=== PATIENT | female | born 1990 | race African-American/Black ===

== ENCOUNTER 2017-11-13 08:56 | Emergency (ER) | payer OTHER ==
[2017-11-13 09:06] VITALS: BP 153/84; PULSE 95; TEMP 98.3; BMI 34.9
--- NOTE | 2017-11-13 09:18 | PDOC ---
Attending Attestation - Resident Resident Name: Carla Davidson - ED Attending Attestation I have performed the following: I have examined & evaluated the patient, The case was reviewed & discussed with the resident, I agree w/resident's findings & plan, Exceptions are as noted - HPI HPI: 11/13/17 09:17 27y F at 14 weeks gestation presents with complaint of vaginal bleeding, associated with lower abd cramping this morning upon awakening without asosciated n/v, fever/chills. Pt notes the pain and bleeding have largely stopped. No prior complications with this . last seen by Grease Renderer last week, last US 2 weeks ago on exam pt is well appearing, in no distress abd: soft nontender, no cva tenderness pelvic exam as documented ddx: threated ab will ck labs will ck pelvic US pt declines pain meds - Physicial Exam PE: 11/14/17 20:14 see above - Medical Decision Making US noted for IUP of 15 weeks FHR of 120 posterior placenta w/o previa will dc the pt to fu with reflector driller and deburrer return precautions were discussed dx threatened ab
--- NOTE | 2017-11-13 10:07 | PDOC ---
History of Present Illness - General Chief Complaint: Vaginal Bleeding Stated Complaint: VAGINAL BLEEDING (16 WKS ) Time Seen by Provider: 11/13/17 09:10 - History of Present Illness Initial Comments: 11/13/17 10:00 27 y.o. at a self reported 14 weeks gestation with no reported PMH presents to our ED today c/o hematuria. Patient states she noticed streaks of bright red blood when urinated this morning without any associated dysuria. Patient notes some B/L lower quadrant abdominal cramping without any fevers/ chills or constipation/diarrhea or nausea/vomiting. Patient notes she was evaluated by her certified marine mechanic earlier this week at which time she was told everything was normal. Patient had a normal transabdominal U/S 2 weeks previous. Patient denies any chest pain, shortness of breath, recent travel or sick contacts. NKDA Surgical: none Social: denies nicotine, denies alcohol, denies recreational drugs certified marine mechanic: Dr. Veronica Past History - Past Medical History Allergies/Adverse Reactions: Allergies Allergy/AdvReac Type Severity Reaction Status Date / Time No Known Allergies Allergy Verified 11/13/17 09:01 Home Medications: Ambulatory Orders Ferrous Sulfate [Feosol] 325 mg PO BID #1 ud 06/05/12 Vitamins (Sjr) - 1 tab PO DAILY #1 tablet 06/05/12 Acetaminophen [Tylenol .Regular Strength -] 650 mg PO Q3H PRN #0 tablet Ibuprofen [Motrin -] 600 mg PO Q4H PRN #0 tablet 06/23/12 Asthma: No Cancer: No Cardiac Disorders: No COPD: No Diabetes: No HTN: No Seizures: No Thyroid Disease: No - Suicide/Smoking/Psychosocial Hx Smoking History: Never smoked Have you smoked in the past 12 months: No Information on smoking cessation initiated: No Hx Alcohol Use: No Drug/Substance Use Hx: No Substance Use Type: None Hx Substance Use Treatment: No Review of Systems - Review of Systems Able to Perform ROS?: Yes Comments:: 11/13/17 10:13 Constitutional - no reported Fever, Chills,~ HEENT: no reported vision changes, sore throat Respiratory: no reported cough, sob, hemoptysis Cardiac: no reported chest pain, palpitations, light headedness, leg swelling Abd/GI: no reported abd pain, nausea, vomiting, blood per rectum, melena, diarrhea : no reported dysuria, frequency, discharge Musculskelatal - no reported back pain, joint swelling skin - no reported bruising, erythema, rash neurological: no reported headache, numbness, focal weakness, tingling, ataxia,~ hematologic: no reported anemia, easy bruising, easy bleeding *Physical Exam - Vital Signs Last Vital Signs Temp Pulse Resp BP Pulse Ox 98.3 F 95 H 18 153/84 100 11/13/17 09:01 11/13/17 09:01 11/13/17 09:01 11/13/17 09:01 11/13/17 09:01 - Physical Exam Comments: 11/13/17 11:56 GENERAL: The patient is awake, alert, and fully oriented, nontoxic - in no acute distress. : Pelvic exam: closed cervical os, no blood in vaginal vault, no CMT, non- palpable adenxa HEAD: Normocephalic, atraumatic. EYES: extraocular movements intact, sclera anicteric, conjunctiva clear. ENT: Normal voice, Moist mucous membranes. NECK: Normal range of motion, supple LUNGS: Breath sounds equal, clear to auscultation bilaterally. No wheezes, no rhonchi, no rales. HEART: Regular rate and rhythm, normal S1 and S2 without murmur, rub or gallop. ABDOMEN: Soft, nontender, normoactive bowel sounds. No guarding, no rebound. . No CVA tenderness, uterine fundus @ pubic symphsis NEUROLOGICAL: No facial assymetry, Normal speech, PSYCH: Normal mood, normal affect. SKIN: Warm, Dry, normal turgor 11/13/17 12:05 ED Treatment Course - LABORATORY CBC & Chemistry Diagram: 11/13/17 09:55 - RADIOLOGY Radiology Studies Ordered: Category Date Time Status LIMITED US [US] Stat Ultrasound 11/13/17 09:36 Ordered Medical Decision Making - Medical Decision Making 11/13/17 10:07 27 y.o. female @ self-reported 14 weeks gestation who presents with vaginal spotting. Will obtain CBC, Type and Screen and UA Transabdominal U/S to r/o placenta pathology including previa as well as spontaneous or threatened . 11/13/17 11:32 Pelvic exam shows closed cervical os w/no blood in vaginal vault. No CMT, normal (non-palpable) adenxa. UA negative for proteinuria. Blood type A positive - no indication for Rhogam. 11/13/17 11:50 Transabdominal U/S shows IUP with normal laying placenta, FHR 120's. Will discharge patient home with return precautions and instruction to follow up with certified marine mechanic in the next 24-48 hours. I discussed the physical exam findings, ancillary test results and final diagnoses with the patient. I answered all of the patient's questions. The patient was satisfied with the care received and felt comfortable with the discharge plan and treatment plan. The patient will return to the Emergency Department with any new, persistent or worsening symptoms. *DC/Admit/Observation/Transfer Diagnosis at time of Disposition: Hematuria - Discharge Dispostion Disposition: HOME Condition at time of disposition: Good Admit: No - Referrals Referrals: Debbie Haong MD [Primary Care Provider] - Jerome Martin MD [Staff Physician] - - Patient Instructions Printed Discharge Instructions: Common Discomforts and Bodily Changes During , Managing Symptoms of Additional Instructions: You were evaluated today for bleeding while urinating. An ultrasound of your abdomen showed no concerning findings. Please make a follow-up appointment with your certified marine mechanic for tomorrow. Return to the Emergency Department for any new/ worsening/concerning symptoms. - Post Discharge Activity
[2017-11-13 10:12] LABS: BASO % 0.2 % (0-2.0); EOS % 0.6 % (0-4.5); HEMATOCRIT 35.3 % (32.4-45.2); HEMOGLOBIN 12.1 GM/dL (10.7-15.3); LYMPH % 17.7 % (8-40); MCH 31.9 pg (25.7-33.7); MCHC 34.4 g/dl (32.0-36.0); MEAN CELL VOLUME 92.8 fl (80-96); MONO % 7.2 % (3.8-10.2); NEUT % 74.3 % (42.8-82.8); PLATELET COUNT 226 K/MM3 (134-434); RBC 3.81 M/mm3 (3.60-5.2); RDW 13.5 % (11.6-15.6); WHITE BLOOD COUNT 9.3 K/mm3 (4.0-10.0)
[2017-11-13 12:32] LABS: URINE APPEARANCE CLEAR; URINE BILIRUBIN NEGATIVE (NEGATIVE); URINE BLOOD NEGATIVE (NEGATIVE); URINE COLOR YELLOW; URINE GLUCOSE (UA) NEGATIVE (NEGATIVE); URINE KETONE NEGATIVE (NEGATIVE); URINE LEUK ESTERASE NEGATIVE (NEGATIVE); URINE NITRITE NEGATIVE (NEGATIVE); URINE PROTEIN NEGATIVE (NEGATIVE)
== END 2017-11-13 13:36 | disposition home or self-care (01) ==
LOC: JER 08:56
DX: O26.892 Other specified pregnancy related conditions, second trimester (principal); Z3A.16 16 weeks gestation of pregnancy
CPT/HCPCS: 36415; 76815-TC; 81003; 84702; 85025; 86850; 86900; 86901; 99283-25

== ENCOUNTER 2019-02-09 20:35 | Inpatient (IN) | payer OTHER ==
[2019-02-09 22:03] VITALS: BMI 34.5
[2019-02-09 22:06] LABS: BASO % 0.2 % (0-2.0); EOS % 0.6 % (0-4.5); HEMATOCRIT 27.8 % (32.4-45.2); HEMOGLOBIN 8.9 GM/dL (10.7-15.3); LYMPH % 21.3 % (8-40); MCH 26.9 pg (25.7-33.7); MCHC 32.2 g/dl (32.0-36.0); MEAN CELL VOLUME 83.6 fl (80-96); MEAN PLT VOLUME 9.6 fl (7.5-11.1); MONO % 9.8 % (3.8-10.2); NEUT % 68.1 % (42.8-82.8); PLATELET COUNT 209 K/MM3 (134-434); RBC 3.32 M/mm3 (3.60-5.2); RETICULOCYTES 1.83 % (0.5-1.5); WHITE BLOOD COUNT 7.2 K/mm3 (4.0-10.0)
[2019-02-09 22:19] LABS: INR 1.05 (0.83-1.09); PROTHROMBIN TIME (PATIENT) 12.4 SEC (9.7-13.0)
[2019-02-09 22:22] LABS: CALCIUM 8.7 mg/dL (8.5-10.1); CREATININE 0.7 mg/dL (0.55-1.3); POTASSIUM 3.5 mmol/L (3.5-5.1)
[2019-02-09 22:57] LABS: EPI CELLS 5.6 /HPF (0-5/HPF); HYALINE CASTS 17 /lpf (0-8); URINE APPEARANCE CLEAR; URINE BACTERIA 357.5 /hpf (NEGATIVE); URINE BILIRUBIN NEGATIVE (NEGATIVE); URINE COLOR YELLOW; URINE GLUCOSE (UA) NEGATIVE (NEGATIVE); URINE KETONE TRACE (NEGATIVE); URINE LEUK ESTERASE 1+ (NEGATIVE); URINE NITRITE NEGATIVE (NEGATIVE); URINE PROTEIN 2+ (NEGATIVE); URINE RBC 3 /hpf (0-4); URINE WBC 7 /hpf (0-5)
--- NOTE | 2019-02-10 07:28 | HP ---
Past Medical History - Primary Care Physician PCP:: Rodrigo Mars - Admission Chief Complaint: 37 weeks, CHTN, GDM uncontrolled History of Present Illness: 28 yo f , edc by sono 03/02/19,37 weeks with hx of CHTN, GDM, uncontrolled admitted for BP monitoring, r/o PIH and BGM prior to delivery, no headache or blurred vision, no RUQ pain, has 2+ protein in urine, no contraction , good fm, nst reactive cat 1, cx 3 cm 50 vx -3 mi, History Source: Patient Limitations to Obtaining History: No Limitations - Past Medical History ...: 4 ...Para: 3 ...Term: 0 ...: 3 ...Spon : 0 ...Induced : 0 ...Multiple Gestation: 0 ...EDC by Sono: 03/01/19 Heme/Onc: Yes: Anemia Endocrine: Yes: Diabetes Mellitus - Past Surgical History Hx Myomectomy: No Hx Transabdominal Cerclage: No - Smoking History Smoking history: Never smoked Have you smoked in the past 12 months: No - Alcohol/Substance Use Hx Alcohol Use: No History of Substance Use: reports: None - Social History History of Recent Travel: No Home Medications - Allergies Allergies/Adverse Reactions: Allergies Allergy/AdvReac Type Severity Reaction Status Date / Time No Known Allergies Allergy Verified 02/10/19 03:52 - Home Medications Home Medications: Ambulatory Orders NK [No Known Home Medication] 01/22/19 Review of Systems - Review of Systems Constitutional: reports: No Symptoms Eyes: reports: No Symptoms HENT: reports: No Symptoms Neck: reports: No Symptoms Cardiovascular: reports: No Symptoms Respiratory: reports: No Symptoms Gastrointestinal: reports: No Symptoms Genitourinary: reports: No Symptoms Breasts: reports: No Symptoms Reported Musculoskeletal: reports: No Symptoms Integumentary: reports: No Symptoms Neurological: reports: No Symptoms Endocrine: reports: No Symptoms Hematology/Lymphatic: reports: No Symptoms Psychiatric: reports: No Symptoms Physical Exam - Maternity Vital Signs: Vital Signs Temperature 98.6 F 02/10/19 06:00 Pulse Rate 70 02/10/19 06:00 Respiratory Rate 20 02/10/19 06:00 Blood Pressure 138/67 02/10/19 06:00 O2 Sat by Pulse Oximetry (%) Constitutional: Yes: Well Nourished, No Distress, Calm Eyes: Yes: WNL, Conjunctiva Clear, EOM Intact HENT: Yes: WNL, Atraumatic, Normocephalic Neck: Yes: WNL, Supple, Trachea Midline Cardiovascular: Yes: WNL, Regular Rate and Rhythm Breast(s): Yes: WNL - Abdominal Exam/OB Fundal Height: 38 Number of Fetuses: Single Presentation: Vertex Contractions: No Regularity: Irritability Intensity: Unaware Monitor Mode: External Heart Rate Location: [facility] Category: I Accelerations: Uniform Decelerations: None - Vaginal Exam/OB Vaginal Bleediing: No Speculum Exam: No Dilatation (cm): 3 cm Effacement (%): 50 Amniotic Membrane Status: Intact Station: -3 - Physical Exam Musculoskeletal: Yes: WNL Extremities: Yes: WNL Edema: LLE: 1+, RLE: 1+ Deep Tendon Reflex Grade: Normal +2 Psychiatric: Yes: WNL - Labs Lab Results: CBC, BMP 02/09/19 21:30 02/09/19 21:30 Hemorrhage Risk Assessment - Risk Factors Medium Risk Factors: Yes: Multiple gestation Risk Score: 1 Risk Level: Medium Risk Problem List - Problems (1) with 37 weeks completed gestation Code(s): Z3A.37 - 37 WEEKS GESTATION OF (2) Gestational diabetes Code(s): O24.419 - GESTATIONAL DIABETES MELLITUS IN , UNSP CONTROL Qualifiers: Gestational diabetes mellitus control: diet-controlled Trimester: third trimester Qualified Code(s): O24.410 - Gestational diabetes mellitus in , diet controlled (3) Hypertension affecting Code(s): O16.9 - UNSPECIFIED MATERNAL HYPERTENSION, UNSPECIFIED TRIMESTER Qualifiers: Trimester: third trimester Qualified Code(s): O16.3 - Unspecified maternal hypertension, third trimester (4) Obesity Code(s): E66.9 - OBESITY, UNSPECIFIED Qualifiers: Obesity type: due to excess calories Assessment/Plan admit, monitor BP, r/o superimposed PIH GDM, diet controlled , non compliant plan monitor BGM 24 hr urine collection [facility] lab
[2019-02-10] MEDS ORDERED: ELECTROLYTE-148 SOLN 1,000 ML IV SCH (11:00)
[2019-02-10] MEDS ORDERED: OXYTOCIN 30 UNITS in 0.9% NS 30 UNIT/500 ML INFUS.BAG IVPB SCH (12:00)
[2019-02-10] MEDS ORDERED: OXYTOCIN 20 UNITS in 0.9% NS 20 UNIT/1,000 ML INFUS.BAG IV ONE ×3 (12:05→19:57)
[2019-02-10] MEDS ORDERED: AMPICILLIN - 2 GM in SODIUM CHLORIDE 100 ML IVPB ONE (13:00)
--- NOTE | 2019-02-10 13:24 | HP ---
Past Medical History - Primary Care Physician PCP:: Moo Soto - Admission Chief Complaint: 28yo P0303 with at EGA 37w2d referred for labor induction due to poor compliance with GDM and HTN with suspected superimposed preeclampsia. History of Present Illness: Poorly compliant with GDM care and management. Not measuring FSG or maintaining diet, not keeping MFM appointments. chronic HTN with increasing BP trend in-office. Normal FSG on admission BP in 140's/80-92 range Anemia Obesity Positive GBS vaginal cx on 01/27/2019 History Source: Patient, Medical Record Limitations to Obtaining History: No Limitations - Past Medical History MOTOR BOSS: No: Alzheimer's, CVA, Dementia, Migraine, Multiple Sclerosis, Peripheral Neuropathy, Parkinson's, Seizure, Syncope, TIA, Vertigo, Other Cardiovascular: No: AFIB, Aneurysm, Aortic Insufficiency, Aortic Stenosis, CAD, CHF, Deep Vein Thrombosis, HTN, Hyperlipdemia, IL, Mitral Insufficiency, Mitral Stenosis, Murmur, Pulmonary Hypertension, Other Pulmonary: No: Asthma, Bronchitis, Cancer, COPD, O2 Dependent, Pneumonia, Previously Intubated, Pulmonary Embolus, Pulmonary Fibrosis, Sleep Apnea, Other Gastrointestinal: No: Ascites, Cancer, Constipation, Crohn's Disease, Diverticulitis, Diverticulosis, Esophageal Varices, Gastritis, GERD, GI Bleed, Hemorrhoids, Hiatal Hernia, Inflamatory Bowel Disease, Irritable Bowel Disease, Pancreatitis, Peptic Ulcer Disease, Ulcerative Colitis, Other Hepatobiliary: No: Cirrhosis, Cholelithiasis, Cholecystitis, Choledocholithiasis , Hepatitis A, Hepatitis B, Hepatitis C, Other Renal/: No: Renal Failure, Renal Inusuff, BPH, Cancer, Hematuria, Hemodialysis , Neurogenic Bladder, Renal Calculi, UTI, Other ...: 4 ...Para: 3 ...Term: 0 ...: 3 ...Spon : 0 ...Induced : 0 ...Multiple Gestation: 0 ... Weeks Gestation by Dates: 37.2 ...EDC by Sono: 03/01/19 Heme/Onc: Yes: Anemia Infectious Disease: No: AIDS, C-Diff, Herpes Zoster, HIV, MRSA, STD's, Tuberculosis, VREF, Other Psych: No: Addictions, Anxiety, Bipolar, Depression, Panic, Psychosis, Schizophrenia, Other Musculoskeletal: No: Bursitis, Chronic low back pain, Hemiparesis, Hemiplegia, Osteoarthritis, Paraplegia, Other Rheumatology: No: Fibromyalgia, Gout, Lupus, Rheumatoid Arthritis, Sarcoidosis, Vasculitis, Other ENT: No: Allergic Rhinitis, Sinusitis, Other Endocrine: Yes: Diabetes Mellitus (GDM) Dermatology: No: Basal Cell, Cellulitis, Eczema, Melanoma, Psoriasis, Squamous Cell, Other - Past Surgical History Past Surgical History: Yes: None Hx Myomectomy: No Hx Transabdominal Cerclage: No - Smoking History Smoking history: Never smoked Have you smoked in the past 12 months: No - Alcohol/Substance Use Hx Alcohol Use: No History of Substance Use: reports: None - Social History Usual Living Arrangement: Yes: With Child ADL: Independent History of Recent Travel: No Home Medications - Allergies Allergies/Adverse Reactions: Allergies Allergy/AdvReac Type Severity Reaction Status Date / Time No Known Allergies Allergy Verified 02/10/19 03:52 - Home Medications Home Medications: Ambulatory Orders NK [No Known Home Medication] 01/22/19 Family Disease History - Family Disease History Family History: Unremarkable Review of Systems - Review of Systems Constitutional: reports: No Symptoms Eyes: reports: No Symptoms HENT: reports: No Symptoms Neck: reports: No Symptoms Cardiovascular: reports: No Symptoms Respiratory: reports: No Symptoms Gastrointestinal: reports: No Symptoms Genitourinary: reports: No Symptoms Breasts: reports: No Symptoms Reported Musculoskeletal: reports: No Symptoms Integumentary: reports: No Symptoms Neurological: reports: No Symptoms Endocrine: reports: No Symptoms Hematology/Lymphatic: reports: No Symptoms Psychiatric: reports: No Symptoms Pain Intensity: 0 Physical Exam - Maternity Vital Signs: Vital Signs Temperature 98.3 F 02/10/19 12:00 Pulse Rate 84 02/10/19 12:00 Respiratory Rate 18 02/10/19 12:00 Blood Pressure 152/89 02/10/19 12:00 O2 Sat by Pulse Oximetry (%) Constitutional: Yes: Well Nourished, No Distress, Calm Eyes: Yes: WNL, Conjunctiva Clear HENT: Yes: WNL, Atraumatic, Normocephalic Neck: Yes: WNL, Supple, Trachea Midline Cardiovascular: Yes: WNL, Regular Rate and Rhythm Lungs: Clear to auscultation, Normal air movement - Abdominal Exam/OB Fundal Height: 38 Number of Fetuses: Single Presentation: Vertex Contractions: No Intensity: Unaware Heart Rate (range): 115 Heart Rate Location: Midline Category: I Accelerations: Uniform Decelerations: None - Vaginal Exam/OB Vaginal Bleediing: No Speculum Exam: No Dilatation (cm): 4 Effacement (%): 50 Amniotic Membrane Status: Intact Presentation: Vertex/Position Station: -3 (Adequate gynecoid pelvis) - Physical Exam Musculoskeletal: Yes: WNL Extremities: Yes: WNL Edema: No Deep Tendon Reflex Grade: Normal +2 ...Motor Strength: WNL Psychiatric: Yes: WNL, Alert, Oriented - Labs Lab Results: CBC, BMP 02/09/19 21:30 02/09/19 21:30 Hemorrhage Risk Assessment - Risk Factors Medium Risk Factors: Yes: None High Risk Factors: Yes: None Risk Score: 1 Risk Level: Medium Risk Imaging - Results Ultrasound: Image Reviewed Assessment/Plan 28yo P0303 with at EGA 37w2d referred for labor induction due to poor compliance with GDM and HTN with suspected superimposed preeclampsia. Pt's FSG are within normal range. The BP is elevated but in mild HTN range. The labs show anemia and 2+ proteinuria but o/w normal. Fetus with category I tracing. I discussed the case with Dr. De Guzman, primary TOOTH POLISHER for this patient, and the plan was previously established in consultation with Dr. Sanz ([facility]) for labor induction at this time. Fetus with Category I tracing. Adequate gynecoid pelvimetry on exam. We had long discussion re: risks, benefits, and alternatives of labor induction. I explained the options of expectant management awaiting spontaneous labor, induction of labor, and elective section. The risks of uterine tachysystole, distress, uterine rupture, need for emergency C/S, hemorrhage, infection, scarring, etc. were discussed. We also discussed the risks of meconium aspiration, shoulder dystocia , and anesthesia options. The pt requested to proceed with induction.
[2019-02-10] MEDS ORDERED: AMPICILLIN SODIUM 2 GM VIAL ONE (13:25)
[2019-02-10] MEDS ORDERED: PROMETHAZINE HCL 25 MG/1 ML VIAL ONE (15:26)
[2019-02-10] MEDS ORDERED: BUTORPHANOL TARTRATE 2 MG/ML VIAL ONE (15:26)
[2019-02-10] MEDS ORDERED: PROMETHAZINE HCL 25 MG/1 ML VIAL IVPB ONE (15:30)
[2019-02-10] MEDS ORDERED: BUTORPHANOL TARTRATE 1 MG/ML VIAL IVPB ONE (15:30)
--- NOTE | 2019-02-10 15:30 | PN ---
Ante-Partal Exam - Subjective Subjective: Pt is c/o contractions Vital Signs: Vital Signs Temperature 98.3 F 02/10/19 14:00 Pulse Rate 72 02/10/19 14:00 Respiratory Rate 18 02/10/19 14:00 Blood Pressure 136/89 02/10/19 14:00 O2 Sat by Pulse Oximetry (%) Bleeding: No Headache: No Visual changes: No Pain (scale 1-10): 7 - Contractions Contractions: Yes Regularity: Irregular Intensity: Moderate Monitor Mode: External - Exam during Labor Heart Rate: 120 Variability: Moderate Heart Rate Location: Midline Category: I Monitor Accelerations: Present Monitor Decelerations: None Exam: Vaginal Dilatation (cm): 5 Effacement (%): 70 Amniotic Membrane Status: Ruptured (AROM) Nitrazine Test: Positive Amniotic Fluid: Clear Presentation: Vertex Station: -3 - Intrapartum Hemorrhage Risk Medium Risk Factors: None High Risk Factors: None Risk Score: 0 Risk Level: Low Risk - Assessment/Plan Assessment/Plan: Progressing in labor. Anticipate
[2019-02-10] MEDS ORDERED: CARBOPROST TROMETHAMINE 250 MCG/ML AMPUL IM ONE (16:45)
[2019-02-10] MEDS ORDERED: BENZOCAINE 20% 57 GM BOTTLE TP PRN (16:57)
[2019-02-10] MEDS ORDERED: METHYLERGONOVINE MALEATE 0.2 MG/1 ML AMP IM PRN (16:57)
[2019-02-10] MEDS ORDERED: BISACODYL 10 MG SUPP.RECT RC PRN (16:57)
[2019-02-10] MEDS ORDERED: BENZOCAINE 28 GM HEMORRHOIDAL OINTMENT TP PRN (16:57)
[2019-02-10] MEDS ORDERED: WITCH HAZEL 50% (TUCKS) 40 PAD/JAR PAD TP PRN (16:57)
[2019-02-10] MEDS ORDERED: OXYTOCIN 20 UNITS in 0.9% NS 20 UNIT/1,000 ML INFUS.BAG IV SCH (17:00)
--- NOTE | 2019-02-10 17:29 | PN ---
Delivery - Delivery Vaginal Delivery: No Problems, Spontaneous Type of Anesthesia: None Episiotomy/Laceration: None EBL (cc): 700 Delivery, Single - Stages of Labor Date 1st Stage Initiatied: 02/10/19 Time 1st Stage Initiated: 12:00 Date 2nd Stage Initiated: 02/10/19 Time 2nd Stage Initiated: 16:15 Date of Delivery: 02/10/19 Time of Delivery: 16:37 Date Placenta Delivered: 02/10/19 Time Placenta Delivered: 16:45 Placenta: Yes: Spontaneous, Normal Configuration - Condition of Electronic Equipment Installer/Hide Grader Present: No Gender: Male Weight: 3.572 kg Position: OA Total Hours ROM (Hrs/Mins): 4H25M - 1 Minute Total Score: 9 5 Minutes Total Score: 9 - Feeding Plan Initial Plan: Elected not to breastfeed exclusively throughout hospitalization Benefits of Exclusively reinforced: Yes Remarks - Remarks Remarks: hemorrhage- responded to uterine massage and Hemabate
[2019-02-10 17:32] LABS: VENOUS PC02 40.5 mmHg (41-51); VENOUS PH 7.37 (7.31-7.41); VENOUS PO2 35.6 mmHg (30-40)
[2019-02-10 17:35] LABS: ARTERIAL BLD GAS O2 SATURATION 46.8 % (95-98); ARTERIAL BLOOD GAS BASE EXCESS -1.8 meq/l (-2-2); ARTERIAL BLOOD GAS PCO2 50.4 mmHg (35-45); ARTERIAL BLOOD GAS pH 7.31 (7.35-7.45)
[2019-02-10 17:39] LABS: ARTERIAL BLOOD GAS PO2 24.6 mmHg (80-105)
[2019-02-10] MEDS ORDERED: IBUPROFEN 600 MG TABLET (FP) PO ONE (18:11)
[2019-02-10] MEDS: IBUPROFEN 600 MG TABLET (FP) PO PRN ×2 (18:15→23:53)
[2019-02-10] MEDS: ACETAMINOPHEN 325 MG TABLET (FP) PO PRN (23:54)
[2019-02-11 06:59] LABS: BASO % 0.2 % (0-2.0); EOS % 0.2 % (0-4.5); HEMATOCRIT 23.9 % (32.4-45.2); HEMOGLOBIN 7.5 GM/dL (10.7-15.3); LYMPH % 14.3 % (8-40); MCH 26.4 pg (25.7-33.7); MCHC 31.3 g/dl (32.0-36.0); MEAN CELL VOLUME 84.4 fl (80-96); MEAN PLT VOLUME 9.9 fl (7.5-11.1); MONO % 8.5 % (3.8-10.2); NEUT % 76.8 % (42.8-82.8); PLATELET COUNT 190 K/MM3 (134-434); RBC 2.83 M/mm3 (3.60-5.2); RDW 14.6 % (11.6-15.6); WHITE BLOOD COUNT 13.1 K/mm3 (4.0-10.0)
[2019-02-11] MEDS: FERROUS SO4 325 MG TABLET (FP) PO SCH ×4 (07:27→17:39)
[2019-02-11] MEDS: PRENATAL VITAMINS W/ FOLIC ACID TABLET (FP) PO SCH (09:06)
[2019-02-11] MEDS: LABETALOL HCL 200 MG TABLET (FP) PO PRN ×2 (10:40→17:39)
--- NOTE | 2019-02-11 21:36 | PN ---
Post Progress Note - Subjective Subjective: Patient without acute complaints. Reports tolerating oral intake without nausea or vomiting. Ambulating without dizziness. Denies fevers or chills. Pain well controlled with oral pain medication. Pumping/breast feeding without issue. Passing flatus. Post Day: 1 Type of Delivery: Vital Signs: Vital Signs Temperature 98.3 F 02/11/19 17:48 Pulse Rate 109 H 02/11/19 17:48 Respiratory Rate 20 02/11/19 17:48 Blood Pressure 142/109 H 02/11/19 17:48 O2 Sat by Pulse Oximetry (%) Breast Exam: Yes: Soft Uterus: Yes: Fundus Firm Abdomen/GI: Yes: Abdomen soft, Passing flatus, Tolerating PO Lochia: Yes: Rubra Lochia, amount: Small Extremities: Yes: Calves non-tender Perineum: Yes: Intact Activity: Ambulating - Labs Labs: CBC WBC 13.1 K/mm3 (4.0-10.0) H 02/11/19 05:30 RBC 2.83 M/mm3 (3.60-5.2) L 02/11/19 05:30 Hgb 7.5 GM/dL (10.7-15.3) L 02/11/19 05:30 Hct 23.9 % (32.4-45.2) L 02/11/19 05:30 MCV 84.4 fl (80-96) 02/11/19 05:30 MCH 26.4 pg (25.7-33.7) 02/11/19 05:30 MCHC 31.3 g/dl (32.0-36.0) L 02/11/19 05:30 RDW 14.6 % (11.6-15.6) 02/11/19 05:30 Plt Count 190 K/MM3 (134-434) 02/11/19 05:30 MPV 9.9 fl (7.5-11.1) 02/11/19 05:30 Absolute Neuts (auto) 10.1 K/mm3 (1.5-8.0) H 02/11/19 05:30 Neutrophils % 76.8 % (42.8-82.8) 02/11/19 05:30 Lymphocytes % 14.3 % (8-40) D 02/11/19 05:30 Monocytes % 8.5 % (3.8-10.2) 02/11/19 05:30 Eosinophils % 0.2 % (0-4.5) 02/11/19 05:30 Basophils % 0.2 % (0-2.0) 02/11/19 05:30 Nucleated RBC % 0 % (0-0) 02/11/19 05:30 Retic Count 1.83 % (0.5-1.5) H D 02/09/19 21:30 Haptoglobin 102 mg/dL (34-200) 02/09/19 21:30 Other Findings, Remarks: 28yo P4 s/p , doing well stable, afebrile. Asymptomatic for anemia. Plan to repeat CBC in AM. BP labile and mostly in normal or mildly elevated range. A few sporadically high BP's noted. Continue labetalol PRN. No s/sx of severe preeclampsia at this time. care instructions reviewed. Continue routine care. Ambulation encouraged Discharge instruction reviewed. Pt was advised that she will need to primary OB doctor same week of discharge. She was also advised that she will need a 2hr Glucose challenge in 5-6 weeks to check for diabetes.
[2019-02-11] MEDS: ACETAMINOPHEN 325 MG TABLET (FP) PO PRN (21:49)
[2019-02-11] MEDS ORDERED: SENNOSIDES/DOCUSATE COMBO (SENNA PLUS) TABLET (UD) PO PRN (22:00)
[2019-02-12 07:39] LABS: BASO % 0.4 % (0-2.0); EOS % 1.6 % (0-4.5); HEMATOCRIT 19.6 % (32.4-45.2); LYMPH % 31.8 % (8-40); MCH 27.2 pg (25.7-33.7); MCHC 32.6 g/dl (32.0-36.0); MEAN CELL VOLUME 83.4 fl (80-96); MEAN PLT VOLUME 9.6 fl (7.5-11.1); MONO % 8.2 % (3.8-10.2); PLATELET COUNT 176 K/MM3 (134-434); RBC 2.35 M/mm3 (3.60-5.2); RDW 14.7 % (11.6-15.6); WHITE BLOOD COUNT 8.7 K/mm3 (4.0-10.0)
[2019-02-12] MEDS: FERROUS SO4 325 MG TABLET (FP) PO SCH ×3 (07:43→17:21)
[2019-02-12 08:06] LABS: ALBUMIN 2.2 g/dl (3.4-5.0); BILIRUBIN,TOTAL 0.2 mg/dL (0.2-1); CALCIUM 8.4 mg/dL (8.5-10.1); CREATININE 0.5 mg/dL (0.55-1.3); POTASSIUM 3.9 mmol/L (3.5-5.1); TOT PROT 5.5 g/dl (6.4-8.2)
[2019-02-12] MEDS: LABETALOL HCL 200 MG TABLET (FP) PO PRN (08:55)
[2019-02-12 09:21] LABS: HEMOGLOBIN 6.4 GM/dL (10.7-15.3)
[2019-02-12] MEDS: PRENATAL VITAMINS W/ FOLIC ACID TABLET (FP) PO SCH (09:35)
--- NOTE | 2019-02-12 10:55 | PN ---
Post Progress Note - Subjective Subjective: Patient without acute complaints. Asymptomatic for anemia. Reports tolerating oral intake without nausea or vomiting. Ambulating without dizziness. Denies fevers or chills. Pain well controlled with oral pain medication. Post Day: 2 Type of Delivery: Vital Signs: Vital Signs Temperature 98.2 F 02/12/19 08:52 Pulse Rate 92 H 02/12/19 08:53 Respiratory Rate 18 02/12/19 08:52 Blood Pressure 156/102 H 02/12/19 08:53 O2 Sat by Pulse Oximetry (%) Breast Exam: Yes: Soft Uterus: Yes: Fundus Firm, Fundus below umbilicus Abdomen/GI: Yes: Abdomen soft, Passing flatus, Tolerating PO Lochia: Yes: Rubra Lochia, amount: Small Extremities: Yes: Calves non-tender Perineum: Yes: Intact Activity: Ambulating - Labs Labs: CBC WBC 8.7 K/mm3 (4.0-10.0) 02/12/19 06:55 RBC 2.35 M/mm3 (3.60-5.2) L 02/12/19 06:55 Hgb 6.4 GM/dL (10.7-15.3) L* 02/12/19 06:55 Hct 19.6 % (32.4-45.2) L D 02/12/19 06:55 MCV 83.4 fl (80-96) 02/12/19 06:55 MCH 27.2 pg (25.7-33.7) 02/12/19 06:55 MCHC 32.6 g/dl (32.0-36.0) 02/12/19 06:55 RDW 14.7 % (11.6-15.6) 02/12/19 06:55 Plt Count 176 K/MM3 (134-434) 02/12/19 06:55 MPV 9.6 fl (7.5-11.1) 02/12/19 06:55 Absolute Neuts (auto) 5.1 K/mm3 (1.5-8.0) 02/12/19 06:55 Neutrophils % 58.0 % (42.8-82.8) D 02/12/19 06:55 Lymphocytes % 31.8 % (8-40) D 02/12/19 06:55 Monocytes % 8.2 % (3.8-10.2) 02/12/19 06:55 Eosinophils % 1.6 % (0-4.5) D 02/12/19 06:55 Basophils % 0.4 % (0-2.0) 02/12/19 06:55 Nucleated RBC % 0 % (0-0) 02/12/19 06:55 Retic Count 1.83 % (0.5-1.5) H D 02/09/19 21:30 Haptoglobin 102 mg/dL (34-200) 02/09/19 21:30 Assessment/Plan 28yo s/p , doing well, afebrile. The pt is asymptomatic for s/sx of anemia. Her Hct is 19.6%. Plan to transfuse 2u PRBC. BP has increased and pt was tx with Labetalol. Plan to request Consult from Renal re: BP control. care instructions reviewed. Continue routine care. Ambulation encouraged Discharge instruction reviewed.
--- NOTE | 2019-02-12 11:49 | CONSULT ---
Consult - text type - Consultation Consultation Note: Renal Consult for hypertension This is a 28 year woman who presented at 37 weeks gestation for indication and noted to have hypertension. Pt reports that he BP was high after the detention point of this . BP was night with her last as well but resolved after delivery. Pt denies any CP, ROJO, CP, Abd pain, N/V/D. Hgb also noted to be low, to get blood today. Denies any Abd pain. S/p Vaginal delivery. PMhx: as above Allergies: NKDA Family Hx: NC Social Hx: No T/A/D ROS: as per HPI Home Medications Medication Instructions Recorded NK [No Known Home Medication] 01/22/19 Vital Signs Temperature 98.2 F 02/12/19 08:52 Pulse Rate 92 H 02/12/19 08:53 Respiratory Rate 18 02/12/19 08:52 Blood Pressure 156/102 H 02/12/19 08:53 O2 Sat by Pulse Oximetry (%) Intake & Output 02/09/19 02/10/19 02/11/19 02/12/19 23:59 23:59 23:59 23:59 Intake Total 125 1050 Balance 125 1050 Weight 106.141 kg NAD awake and alert neck supple, no JVD RRR CTA soft NT/ND no LE edema no focal neurologic deficits CBC, BMP 02/12/19 06:55 02/12/19 06:55 Laboratory Tests 02/09/19 22:00 Urine Protein 2+ H Ur Leukocyte Esterase 1+ H Current Medications Acetaminophen (Tylenol -) 650 mg PO Q3H PRN PRN Reason: PAIN Last Admin: 02/11/19 21:49 Dose: 650 mg Benzocaine (Americaine 20% [place] -) 1 spray TP PRN PRN PRN Reason: PAIN Last Admin: 02/11/19 21:48 Dose: 1 spray Benzocaine (Americaine Ointment -) 1 applic TP PRN PRN PRN Reason: PAIN Bisacodyl (Dulcolax Suppository -) 10 mg RC PRN PRN PRN Reason: CONSTIPATION Ferrous Sulfate (Feosol -) 325 mg PO TIDCM [facility] Last Admin: 02/12/19 11:34 Dose: 325 mg Parenteral Electrolytes (Plasma-Lyte 148 -) 1,000 mls @ 125 mls/hr IV ASDIR [facility] Last Admin: 02/10/19 11:00 Dose: 125 mls/hr Oxytocin/Sodium Chloride (Normal Saline+20 Units Oxytocin -) 20 unit in 1,000 mls @ 125 mls/hr IV ASDIR ROSITA Last Admin: 02/10/19 16:45 Dose: 125 mls/hr Ibuprofen (Motrin -) 600 mg PO Q4H PRN PRN Reason: PAIN Last Admin: 02/10/19 23:53 Dose: 600 mg Labetalol HCl (Normodyne -) 200 mg PO TID PRN PRN Reason: FOR SYSTOLIC>140;DYASTOLIC >90 Last Admin: 02/12/19 08:55 Dose: 200 mg Multivit/Folic Acid/Iron ( Vitamins (Sjr) -) 1 tab PO DAILY ROSITA Last Admin: 02/12/19 09:35 Dose: 1 tab Senna/Docusate Sodium (Pericolace -) 2 tablet PO HS PRN PRN Reason: CONSTIPATION Witch Sary/Glycerin (Tucks Pads -) 1 pad TP PRN PRN PRN Reason: PAIN Last Admin: 02/11/19 17:39 Dose: 1 can 28 year woman who presented at 37 weeks gestation for indication and noted to have hypertension. Pt reports that he BP was high after the detention point of this # hypertension r/o preeclampsia #Acute Anemia #Proteinuria #Single gestation s/p vaginal delivery. No evidence of HELLP (normal plt counts, normal liver function) Will check LDH and haptolgobin BP improved with labetalol Change labetalol order to 200mg Q6h PRN for SBP > 140 or DBP > 90 check urine protein to creatinine ratio Low salt diet pain control w/o NSAIDs for prbc transfusion as per OB Thank you Laith Toledo DO
[2019-02-12] MEDS ORDERED: LABETALOL HCL 200 MG TABLET (FP) PO PRN (11:51)
[2019-02-13 06:15] VITALS: TEMP 98.3
[2019-02-13] MEDS: FERROUS SO4 325 MG TABLET (FP) PO SCH ×2 (07:57→11:51)
[2019-02-13] MEDS: PRENATAL VITAMINS W/ FOLIC ACID TABLET (FP) PO SCH (10:00)
--- NOTE | 2019-02-13 11:35 | PN ---
Post Progress Note - Subjective Subjective: Patient without acute complaints. Reports tolerating oral intake without nausea or vomiting. Ambulating without dizziness or palpitations Denies fevers or chills. Pain well controlled with oral pain medication. Not Passing flatus. Post Day: 2 Type of Delivery: Vital Signs: Vital Signs Temperature 98.3 F 02/13/19 10:00 Pulse Rate 82 02/13/19 10:00 Respiratory Rate 18 02/13/19 10:00 Blood Pressure 125/79 02/13/19 10:00 O2 Sat by Pulse Oximetry (%) Breast Exam: Yes: Soft Uterus: Yes: Fundus Firm Abdomen/GI: Yes: Abdomen soft, Passing flatus, Tolerating PO Lochia: Yes: Rubra Lochia, amount: Small Perineum: Yes: Intact Activity: Ambulating - Labs Labs: CBC WBC 8.7 K/mm3 (4.0-10.0) 02/12/19 06:55 RBC 2.35 M/mm3 (3.60-5.2) L 02/12/19 06:55 Hgb 6.4 GM/dL (10.7-15.3) L* 02/12/19 06:55 Hct 19.6 % (32.4-45.2) L D 02/12/19 06:55 MCV 83.4 fl (80-96) 02/12/19 06:55 MCH 27.2 pg (25.7-33.7) 02/12/19 06:55 MCHC 32.6 g/dl (32.0-36.0) 02/12/19 06:55 RDW 14.7 % (11.6-15.6) 02/12/19 06:55 Plt Count 176 K/MM3 (134-434) 02/12/19 06:55 MPV 9.6 fl (7.5-11.1) 02/12/19 06:55 Absolute Neuts (auto) 5.1 K/mm3 (1.5-8.0) 02/12/19 06:55 Neutrophils % 58.0 % (42.8-82.8) D 02/12/19 06:55 Lymphocytes % 31.8 % (8-40) D 02/12/19 06:55 Monocytes % 8.2 % (3.8-10.2) 02/12/19 06:55 Eosinophils % 1.6 % (0-4.5) D 02/12/19 06:55 Basophils % 0.4 % (0-2.0) 02/12/19 06:55 Nucleated RBC % 0 % (0-0) 02/12/19 06:55 Retic Count 1.83 % (0.5-1.5) H D 02/09/19 21:30 Haptoglobin 110 mg/dL (34-200) 02/12/19 15:00 Assessment/Plan 28yo P4 s/p with PPH s/p 2 Units PRBC VSS, Afebrile no s/s of Preeclampsia no s/s of acute anemia will d/c home once CBC back and reviewed NPV x 6wks reviewed RTO 4-6 wks
--- NOTE | 2019-02-13 11:57 | PN ---
Progress Note (short form) - Note Progress Note: Renal follow up for hypertension Pt seen and examined at the bedside awake and alert has no acute complaints no ROJO, CP, Abd pain Last received Labetalol yesterday afternoon Vital Signs Temperature 98.3 F 02/13/19 10:00 Pulse Rate 82 02/13/19 10:00 Respiratory Rate 18 02/13/19 10:00 Blood Pressure 125/79 02/13/19 10:00 O2 Sat by Pulse Oximetry (%) Intake & Output 02/10/19 02/11/19 02/12/19 02/13/19 23:59 23:59 23:59 23:59 Intake Total 125 1050 870 Output Total 1450 Balance 125 1050 -580 NAD RRR CTA soft NT/ND no LE edema CBC, BMP 02/12/19 06:55 02/12/19 06:55 Current Medications Acetaminophen (Tylenol -) 650 mg PO Q3H PRN PRN Reason: PAIN Last Admin: 02/11/19 21:49 Dose: 650 mg Benzocaine (Americaine 20% [place] -) 1 spray TP PRN PRN PRN Reason: PAIN Last Admin: 02/11/19 21:48 Dose: 1 spray Benzocaine (Americaine Ointment -) 1 applic TP PRN PRN PRN Reason: PAIN Bisacodyl (Dulcolax Suppository -) 10 mg RC PRN PRN PRN Reason: CONSTIPATION Ferrous Sulfate (Feosol -) 325 mg PO TIDCM [facility] Last Admin: 02/13/19 11:51 Dose: 325 mg Parenteral Electrolytes (Plasma-Lyte 148 -) 1,000 mls @ 125 mls/hr IV ASDIR [facility] Last Admin: 02/10/19 11:00 Dose: 125 mls/hr Oxytocin/Sodium Chloride (Normal Saline+20 Units Oxytocin -) 20 unit in 1,000 mls @ 125 mls/hr IV ASDIR [facility] Last Admin: 02/10/19 16:45 Dose: 125 mls/hr Ibuprofen (Motrin -) 600 mg PO Q4H PRN PRN Reason: PAIN Last Admin: 02/10/19 23:53 Dose: 600 mg Labetalol HCl (Normodyne -) 200 mg PO Q6H PRN PRN Reason: FOR SYSTOLIC>140;DYASTOLIC >90 Last Admin: 02/12/19 15:47 Dose: 200 mg Multivit/Folic Acid/Iron ( Vitamins (Sjr) -) 1 tab PO DAILY ROSITA Last Admin: 02/13/19 10:00 Dose: 1 tab Senna/Docusate Sodium (Pericolace -) 2 tablet PO HS PRN PRN Reason: CONSTIPATION Witch Sary/Glycerin (Tucks Pads -) 1 pad TP PRN PRN PRN Reason: PAIN Last Admin: 02/11/19 17:39 Dose: 1 can 28 year woman who presented at 37 weeks gestation for indication and noted to have hypertension. Pt reports that he BP was high after the long term point of this # hypertension r/o preeclampsia #Acute Anemia #Proteinuria #Single gestation s/p vaginal delivery. BP has been below the threshold for medication since yesterday afternoon she can be discharged off medications advised to maintain a low salt diet (< 2g daily) and obtain a automated BP cuff to monitor BP twice daily to follow up in our office in 1 week for BP check s/p PRBC transfusion yesterday discharge planning as per OB Thank you Laith Toledo DO
--- NOTE | 2019-02-13 12:18 | DS ---
Physical Exam-[facility] [employer] Vital Signs: Vital Signs Temperature 98.3 F 02/13/19 10:00 Pulse Rate 82 02/13/19 10:00 Respiratory Rate 18 02/13/19 10:00 Blood Pressure 125/79 02/13/19 10:00 O2 Sat by Pulse Oximetry (%) Constitutional: Yes: Well Nourished, No Distress, Calm Eyes: Yes: WNL HENT: Yes: WNL, Atraumatic, Normocephalic Neck: Yes: WNL, Supple, Other Cardiovascular: Yes: WNL, Regular Rate and Rhythm Respiratory: Yes: WNL, Regular, CTA Bilaterally Gastrointestinal: Yes: WNL, Normal Bowel Sounds Vaginal Exam: Yes: Normal ....Post : Yes: Uterus firm, Uterus non-tender Breast(s): Yes: WNL Musculoskeletal: Yes: WNL Extremities: Yes: WNL Integumentary: Yes: WNL Neurological: Yes: WNL, Alert, Oriented ...Motor Strength: WNL Psychiatric: Yes: WNL, Alert, Oriented Labs: CBC, BMP 02/12/19 06:55 02/12/19 06:55 Delivery - Delivery Vaginal Delivery: No Problems, Spontaneous Type of Anesthesia: None Episiotomy/Laceration: None EBL (cc): 700 Delivery, Single - Stages of Labor Date 1st Stage Initiatied: 02/10/19 Time 1st Stage Initiated: 12:00 Date 2nd Stage Initiated: 02/10/19 Time 2nd Stage Initiated: 16:15 Date of Delivery: 02/10/19 Time of Delivery: 16:37 Time Placenta Delivered: 16:45 Placenta: Yes: Spontaneous, Normal Configuration - Condition of Infant Ice Cream Dipper/Head Of Academic Technology Present: No Gender: Male Weight: 7 lb 14 oz Position: OA Total Hours ROM (Hrs/Mins): 4H25M - 1 Minute Total Score: 9 5 Minutes Total Score: 9 - [place] Feeding Plan Initial Plan: Elected not to breastfeed exclusively throughout hospitalization Benefits of Exclusively reinforced: Yes Discharge Summary Reason For Visit: LABOR INDUCTION Current Active Problems Gestational diabetes (Acute) Hypertension affecting (Acute) Obesity (Acute) with 37 weeks completed gestation (Acute) Procedures: Principal: Normal vaginal delivery Other Procedures: 2 Units PRBC transfusion Hospital Course: unremarkable Condition: Good - Instructions Diet, Activity, Other Instructions: Physical activity Resume your normal everyday activity as tolerated no heavy lifting or exercise until seen by your surgeon. You may walk unlimited niranjan of and climb stairs. You may resume driving the car when you feel safe and comfortable behind the wheel. No sexual activity as instructed. Wound care If you have a bandage, leave it on, and keep dry for 48-72 hours. After that time discard the outer bandage. If they are tapes on the skin under the out of bandage leave them in place. They will peel off in the next 7 to 10 days. Do Not Peel them off. You may shower the day after surgery. If there are tapes present on the skin, you may shower over them. Diet There are no dietary restrictions. Eat healthy, high-fiber foods. Drink 6 to 8 glasses of liquid each day. This will assist in keeping your bowels are regular. Pain management You may take Tylenol or acetaminophen or Ibuprofen (for example, Motrin, Advil etc.) from my pain prescription medication is ordered should be taken as prescribed for moderate to severe pain. Call MD for any of the following: Severe pain not relieved by medication Fever of 101 or higher Excessive bleeding or drainage on dressing Inability to urinate Disposition: HOME - Home Medications Comprehensive Discharge Medication List: Ambulatory Orders NK [No Known Home Medication] 01/22/19
[2019-02-13 14:25] LABS: BASO % 0.3 % (0-2.0); EOS % 1.1 % (0-4.5); HEMATOCRIT 25.7 % (32.4-45.2); HEMOGLOBIN 8.5 GM/dL (10.7-15.3); LYMPH % 17.3 % (8-40); MCH 27.9 pg (25.7-33.7); MCHC 32.9 g/dl (32.0-36.0); MEAN CELL VOLUME 84.7 fl (80-96); MEAN PLT VOLUME 9.1 fl (7.5-11.1); MONO % 8.3 % (3.8-10.2); PLATELET COUNT 201 K/MM3 (134-434); RBC 3.03 M/mm3 (3.60-5.2); RDW 15.2 % (11.6-15.6); WHITE BLOOD COUNT 10.3 K/mm3 (4.0-10.0)
[2019-02-13 18:22] VITALS: BP 123/78; PULSE 83
== END 2019-02-13 16:15 | disposition home or self-care (01) | DRG 560 ==
LOC: JLDR 20:35 → J3W 02-10 22:10
PROVIDERS: ADMIT Obstetrics & Gynecology; ATTEND Obstetrics & Gynecology
PROC: 30233N1 Transfusion of Nonautologous Red Blood Cells into Peripheral Vein, Percutaneous Approach (ICD-10-PCS; 2019-02-09)
PROC: 10E0XZZ Delivery of Products of Conception, External Approach (ICD-10-PCS; principal; 2019-02-10)
DX: O16.3 Unspecified maternal hypertension, third trimester (principal); O24.429 Gestational diabetes mellitus in childbirth, unspecified control; O99.013 Anemia complicating pregnancy, third trimester; O99.213 Obesity complicating pregnancy, third trimester; E66.9 Obesity, unspecified; Z3A.37 37 weeks gestation of pregnancy; Z22.330 Carrier of Group B streptococcus; O67.8 Other intrapartum hemorrhage; Z37.0 Single live birth
CPT/HCPCS: 36415; 36430; 36511; 36600; 59409; 80048; 80053; 81003; 82565; 82803; 82962; 82977; 83010; 83615; 84156; 84450; 84460; 84550; 85025; 85044; 85610; 85730; 86593; 86850; 86900; 86901; 86922; P9038; P9058

== ENCOUNTER 2020-04-21 05:33 | Day surgery (SDC) | payer OTHER ==
[2020-04-21 05:44] VITALS: BMI 32.5
[2020-04-21] MEDS ORDERED: SODIUM CHLORIDE 0.9% 500 ML INFUS.BAG IV ONE (06:03)
--- NOTE | 2020-04-21 06:03 | PDOC ---
Attending Attestation - Resident Resident Name: UliSteven - ED Attending Attestation I have performed the following: I have examined & evaluated the patient, The case was reviewed & discussed with the resident, I agree w/resident's findings & plan - HPI HPI: 04/21/20 05:57 Pt comes with miscarriage. Pt has and no hx of miscarriage or . Pt is tachycardic and lightheaded. She filled 5 pampers with blood at home. Here she is felivering POCs. sac seems to be coming out. 04/21/20 06:04 - Physicial Exam PE: 04/21/20 05:57 Agree with resident exam - Medical Decision Making 04/21/20 06:10 Pt currently miscarrying; Dr. Barakat called us back as she is bonding machine tender. She recommends Pitocn 20U/100ml NSS; Pt's HIGH SCHOOL ASSISTANT PRINCIPAL is at [facility], as a result we will call [facility]. 04/21/20 06:50 Pt will be sent for SONO ONCE THE DEPARTMENT OPENS. Her primary slot machine key person Gab (SEBASTIAN bonding machine tender) is asking that we call him back once sono is completed. Pt had acute blood loss of 100cc (5 pampers and blood clots here. Pt will be transfused with 1U PRBC. She has a L of saline running. Pt will be started on Pitocin. Discharge - Discharge Information Problems reviewed: Yes Clinical Impression/Diagnosis: Retained products of conception Condition: Good Disposition: HOME - Additional Discharge Information - Follow up/Referral - Patient Discharge Instructions - Post Discharge Activity
[2020-04-21] MEDS ORDERED: OXYTOCIN 20 UNITS in 0.9% NS 1000 ML INFUS.BAG IV ONE ×2 (06:09→08:45)
[2020-04-21 06:11] LABS: BASO % 0.4 % (0-2.0); EOS % 0.2 % (0-4.5); HEMATOCRIT 30.1 % (32.4-45.2); HEMOGLOBIN 9.6 GM/dL (10.7-15.3); LYMPH % 18.2 % (8-40); MCH 27.1 pg (25.7-33.7); MCHC 31.7 g/dl (32.0-36.0); MEAN CELL VOLUME 85.5 fl (80-96); NEUT % 74.2 % (42.8-82.8); PLATELET COUNT 292 K/MM3 (134-434); RBC 3.52 M/mm3 (3.60-5.2); RDW 17.8 % (11.6-15.6); WHITE BLOOD COUNT 13.4 K/mm3 (4.0-10.0)
--- NOTE | 2020-04-21 06:13 | PDOC ---
History of Present Illness - General Chief Complaint: Vaginal Bleeding Stated Complaint: POSSIBLE MISCARRIAGE Time Seen by Provider: 04/21/20 05:45 - History of Present Illness Initial Comments: 04/21/20 06:53 29 yo female presents to ED for vaginal bleed that started 11 pm today. Pt explains she is 12 weeks and has been bleeding through so many pads where started using pampers and had bled thorugh 5 pampers. Pt currently also endorsing shortness of breath and lightheadedness. Pt has had 4 births at 8 months with complications of htn and anemia where she had to be transfused blood. Pt has not had an ultrasound stating intrauterine . Pt denies chest pain, fevers, chills, dysuria, or urinary frequency. PMH: denies Meds: meliza PSH: denies Allergies: meliza PCP: does not have one OBGYN: Dr. De Guzman of [facility] Past History - Medical History Allergies/Adverse Reactions: Allergies Allergy/AdvReac Type Severity Reaction Status Date / Time No Known Allergies Allergy Verified 04/21/20 05:44 Home Medications: Ambulatory Orders Doxycycline Hyclate 100 mg PO BID 5 Days #10 tablet 04/21/20 Asthma: No Cancer: No Cardiac Disorders: No COPD: No Diabetes: Yes HTN: Yes Seizures: No Thyroid Disease: No - Reproductive History Is Patient Now?: No - Psycho-Social/Smoking History Smoking History: Never smoked Have you smoked in the past 12 months: No Information on smoking cessation initiated: No - Substance Abuse Hx (Audit-C & DAST Scrn) How often the patient has a drink containing alcohol: Never Score: In Men: 4 or > Positive; In Women: 3 or > Positive: 0 Screen Result (Pos requires Nsg. Audit-10AR): Negative In the last yr the pt used illegal drug/Rx for NonMed reason: No Score: Yes response is considered Positive: 0 Screen Result (Positive result requires Nsg. DAST-10): Negative Review of Systems - Review of Systems Comments:: 04/21/20 07:54 GENERAL/CONSTITUTIONAL: No fever or chills. No weakness. HEAD, EYES, EARS, NOSE AND THROAT: No change in vision. No ear pain or discharge. No sore throat. CARDIOVASCULAR: No chest pain. SOB RESPIRATORY: No cough, wheezing, or hemoptysis. GASTROINTESTINAL: No nausea, vomiting, diarrhea or constipation. GENITOURINARY: No dysuria, frequency, or change in urination. Blood, clots in vaginal vault. MUSCULOSKELETAL: No joint or muscle swelling or pain. No neck or back pain. SKIN: No rash NEUROLOGIC: No headache, vertigo, loss of consciousness, or change in strength/sensation. ENDOCRINE: No increased thirst. No abnormal weight change ALLERGIC/IMMUNOLOGIC: No hives or skin allergy *Physical Exam - Vital Signs Last Vital Signs Temp Pulse Resp BP Pulse Ox 98.1 F 114 H 20 119/82 100 04/21/20 05:42 04/21/20 05:42 04/21/20 05:42 04/21/20 05:42 04/21/20 05:42 - Physical Exam 04/21/20 07:56 GENERAL: Awake, alert, and fully oriented, in severe distress. HEAD: No signs of trauma, normocephalic, atraumatic EYES: EOMI, sclera anicteric, conjunctiva clear, no blanching of erythema ENT: Auricles normal inspection, hearing grossly normal, nares patent, oropharynx clear without exudates. Moist mucosa NECK: Normal ROM, supple, no lymphadenopathy, JVD, or masses LUNGS: No distress, speaks full sentences, clear to auscultation bilaterally HEART: tachycardic and regular rhythm, normal S1 and S2, no murmurs, rubs or gallops, peripheral pulses normal and equal bilaterally. ABDOMEN: normoactive bowel sounds. Tender to palpation on LLQ and RLQ. No guarding, no rebound. No masses EXTREMITIES : Normal inspection, Normal range of motion, no edema. No clubbing or cyanosis. NEUROLOGICAL: Cranial nerves II through XII grossly intact. Normal speech SKIN: Warm, Dry, normal turgor, no rashes or lesions noted : pooling of blood on vaginal vault. Os not visualized blue protruberence protruding out of vaginal vault. Exam chaperoned by Dr. Terry WILSON Treatment Course - LABORATORY CBC & Chemistry Diagram: 04/21/20 14:45 04/21/20 05:51 - ADDITIONAL ORDERS Additional order review: Laboratory Results 04/21/20 05:51 Crossmatch See Detail Medical Decision Making - Medical Decision Making 04/21/20 06:11 29 yo female with 12 week no known ultrasound to confirm IUP coming in with miscarriage, SOB, tachycardic. Pt will get labs, 1PRBC. Called OBGYN recruitment consultant Dr. Husain who said to give 20 oxytocin and call Xavi Roberts who is her primary obgyn. Also said pt most likely does not have ectopic due to abundance of blood. Called in oncall ultrasound team that said they will come to ED. 04/21/20 06:27 Talked to Xavi Roberts medical assistant secretary who will call back 04/21/20 06:[address] Goodman who was pt recruitment consultant for Dr. De Guzman who said call back when get sono. 04/21/20 06:57 Pt was signed out to AM team Discharge - Discharge Information Problems reviewed: Yes Clinical Impression/Diagnosis: Retained products of conception Condition: Good Disposition: HOME - Additional Discharge Information - Follow up/Referral - Patient Discharge Instructions - Post Discharge Activity
[2020-04-21 06:44] LABS: ALBUMIN 3.1 g/dl (3.4-5.0); BILIRUBIN,TOTAL 0.2 mg/dL (0.2-1); CALCIUM 8.7 mg/dL (8.5-10.1); CREATININE 1.2 mg/dL (0.55-1.3); POTASSIUM 3.8 mmol/L (3.5-5.1); TOT PROT 6.4 g/dl (6.4-8.2)
--- NOTE | 2020-04-21 07:34 | PDOC ---
*Physical Exam - Vital Signs Last Vital Signs Temp Pulse Resp BP Pulse Ox 98.1 F 100 H 18 104/56 L 100 04/21/20 05:42 04/21/20 06:43 04/21/20 06:43 04/21/20 06:43 04/21/20 06:43 - Physical Exam 04/21/20 07:32 ED Treatment Course - LABORATORY CBC & Chemistry Diagram: 04/21/20 14:45 04/21/20 05:51 - ADDITIONAL ORDERS Additional order review: Laboratory Results 04/21/20 04/21/20 05:51 05:51 Sodium 136 Potassium 3.8 Chloride 105 Carbon Dioxide 19 L Anion Gap 12 BUN 12.0 Creatinine 1.2 Est GFR (CKD-EPI)AfAm 71.22 Est GFR (CKD-EPI)NonAf 61.45 Random Glucose 217 H Calcium 8.7 Total Bilirubin 0.2 AST 7 L ALT 11 L Alkaline Phosphatase 41 L Total Protein 6.4 Albumin 3.1 L Beta HCG, Quant 1871.8 Crossmatch See Detail 04/21/20 05:51 RBC 3.52 L MCV 85.5 MCHC 31.7 L RDW 17.8 H MPV 10.0 Neutrophils % 74.2 Lymphocytes % 18.2 Monocytes % 7.0 Eosinophils % 0.2 D Basophils % 0.4 - Medications Given in the ED: ED Medications Discontinued Medications Generic Name Dose Route Start Last Admin Trade Name Freq PRN Reason Stop Dose Admin Sodium Chloride 1,000 ml 04/21/20 06:03 04/21/20 06:13 Normal Saline - IV 04/21/20 06:04 1,000 ml ONCE ONE Administration Medical Decision Making - Medical Decision Making 04/21/20 08:14 signed out from PM team 12 weeks gestation by dates w/ vaginal bleeding Pooling and POC on Pelvic hgb 9.6 h/o bleed requiring transfusion Yuval c/s deann woromán like POC Tachy [] f/u TVUS [] c/s Dr. Soto (GRAPHIC ARTS TECHNICIAN) 04/21/20 08:14 informed by USS patient had passed clot/POC in bedpan. POC transferred to storage container. awaiting TVUS results and will d/w Dr. Soto 04/21/20 10:27 TVUS results reviewed and dw Dr. Soto who is at pt bedside Admit to Dr Soto service for D&C Discharge - Discharge Information Problems reviewed: Yes Clinical Impression/Diagnosis: Retained products of conception Condition: Good Disposition: HOME - Additional Discharge Information - Follow up/Referral - Patient Discharge Instructions - Post Discharge Activity
[2020-04-21 09:06] LABS: INR 1.08 (0.83-1.09); PROTHROMBIN TIME (PATIENT) 12.8 SEC (9.7-13.0)
[2020-04-21 09:08] LABS: ACTIVATED PTT 20.7 SECONDS (25.2-36.5)
--- NOTE | 2020-04-21 09:10 | EKG ---
Test Reason : Blood Pressure : / mmHG Vent. Rate : 083 BPM Atrial Rate : 083 BPM P-R Int : 138 ms QRS Dur : 080 ms QT Int : 386 ms P-R-T Axes : 058 057 028 degrees QTc Int : 453 ms NORMAL SINUS RHYTHM NONSPECIFIC T WAVE ABNORMALITY ABNORMAL ECG NO PREVIOUS ECGS AVAILABLE Confirmed by Laurie Davenport ([id number]) on 04/21/2020 9:09:58 AM Referred By: Confirmed By:Laurie Davenport
--- NOTE | 2020-04-21 11:01 | CON.OBG ---
Consult Consult Specialty:: SEPTIC TANK SERVICER Referred by:: Dr. Henson Reason for Consultation:: 29yo P4 with incomplete and active bleeding - History of Present Illness Chief Complaint: Pt with early that she reports to be ~12 wks (by pt report) started bleeding last night. She passed some clots and tissue. History of Present Illness: Pelvic US showed EE 2.1cm with likely RPOC. On exam c/w incomplete Ab and active bleeding. - History Source History Provided By: Patient Limitations to Obtaining History: No Limitations - Past Medical History CULINARY ART TEACHER: No: Alzheimer's, CVA, Dementia, Migraine, Multiple Sclerosis, Peripheral Neuropathy, Parkinson's, Seizure, Syncope, TIA, Vertigo, Other Pulmonary: No: Asthma, Bronchitis, Cancer, COPD, O2 Dependent, Pneumonia, Previously Intubated, Pulmonary Embolus, Pulmonary Fibrosis, Sleep Apnea, Other Gastrointestinal: No: Ascites, Cancer, Constipation, Crohn's Disease, Diverticulitis, Diverticulosis, Esophageal Varices, Gastritis, GERD, GI Bleed, Hemorrhoids, Hiatal Hernia, Inflamatory Bowel Disease, Irritable Bowel Disease, Pancreatitis, Peptic Ulcer Disease, Ulcerative Colitis, Other Hepatobiliary: No: Cirrhosis, Cholelithiasis, Cholecystitis, Choledocholithiasis, Hepatitis A, Hepatitis B, Hepatitis C, Other Renal/: No: Renal Failure, Renal Inusuff, BPH, Cancer, Hematuria, Hemodialysis, Neurogenic Bladder, Renal Calculi, UTI, Other Reproductive: No: Ectopic , Endometriosis, Fibroids, PID, Polycystic Ovary Syndrome, Postmenopausal, Other ...LMP: 02/20/20 ...: No Heme/Onc: Yes: Anemia Infectious Disease: No: AIDS, C-Diff, Herpes Zoster, HIV, MRSA, STD's, Tuberculosis, VREF, Other Psych: No: Addictions, Anxiety, Bipolar, Depression, Panic, Psychosis, Schizophrenia, Other Musculoskeletal: No: Bursitis, Chronic low back pain, Hemiparesis, Hemiplegia, Osteoarthritis, Paraplegia, Other Rheumatology: No: Fibromyalgia, Gout, Lupus, Rheumatoid Arthritis, Sarcoidosis, Vasculitis, Other ENT: No: Allergic Rhinitis, Sinusitis, Other Endocrine: Yes: Diabetes Mellitus (GDM) Dermatology: No: Basal Cell, Cellulitis, Eczema, Melanoma, Psoriasis, Squamous Cell, Other - Past Surgical History Past Surgical History: Yes: None - Alcohol/Substance Use Hx Alcohol Use: No History of Substance Use: reports: None - Smoking History Smoking history: Never smoked Have you smoked in the past 12 months: No - Social History Usual Living Arrangement: With Child ADL: Independent History of Recent Travel: No Home Medications - Allergies Allergies/Adverse Reactions: Allergies Allergy/AdvReac Type Severity Reaction Status Date / Time No Known Allergies Allergy Verified 04/21/20 05:44 - Home Medications Home Medications: Ambulatory Orders NK [No Known Home Medication] 01/22/19 Family Medical History Family History: Unremarkable Review of Systems - Review of Systems Constitutional: reports: No Symptoms Eyes: reports: No Symptoms HENT: reports: No Symptoms Neck: reports: No Symptoms Cardiovascular: reports: No Symptoms Respiratory: reports: No Symptoms Gastrointestinal: reports: No Symptoms Genitourinary: reports: Vaginal Bleeding Breasts: reports: No Symptoms Reported Musculoskeletal: reports: No Symptoms Integumentary: reports: No Symptoms Neurological: reports: No Symptoms Endocrine: reports: No Symptoms Hematology/Lymphatic: reports: No Symptoms Psychiatric: reports: No Symptoms Pain Intensity: 3 Physical Exam-SEPTIC TANK SERVICER Vital Signs: Vital Signs Temperature 98.4 F 04/21/20 10:41 Pulse Rate 100 H 04/21/20 10:41 Respiratory Rate 18 04/21/20 10:41 Blood Pressure 124/69 04/21/20 10:41 O2 Sat by Pulse Oximetry (%) 100 04/21/20 10:41 Constitutional: Yes: No Distress, Calm, Obese Eyes: Yes: WNL, Conjunctiva Clear, EOM Intact HENT: Yes: WNL, Atraumatic, Normocephalic Neck: Yes: WNL, Supple, Trachea Midline Cardiovascular: Yes: WNL, Regular Rate and Rhythm Respiratory: Yes: WNL, Regular, CTA Bilaterally Gastrointestinal: Yes: Normal Bowel Sounds, Soft, Abdomen, Obese ...Rectal Exam: Yes: Deferred Renal/: Yes: WNL Pelvis: Yes: WNL External Genitalia: Yes: Normal Internal Exam Deferred: No Vaginal Exam: Yes: Bleeding Cervix: Yes: Bleeding, Other (os 1-2cm open) Uterus: Yes: Normal, Freely Moveable, Anteverted Adnexa: Normal: Left, Right Musculoskeletal: Yes: WNL Extremities: Yes: WNL Integumentary: Yes: WNL Neurological: Yes: WNL, Alert, Oriented ...Motor Strength: WNL Psychiatric: Yes: WNL, Alert, Oriented Labs: CBC, BMP 04/21/20 05:51 04/21/20 05:51 Assessment/Plan 29yp P4 with incomplete Ab, bleeding. pt is stable but she was tachycardic and ER staff began a blood transfusion. Plan to suction, D&C. We had a long discussion about the risks, benefits, and alternatives of surgery. I explained the risks of infection, bleeding, scarring, amenorrhea, Asherman's syndrome, infertility, perforation, need for additional surgery to treat any complications, etc. The pt declined expectant management of incomplete ab or prostaglandin trial to complete SAB. She requested to proceed with surgery. I emphasized that all surgeries have risks and no guarantees can be provided.
[2020-04-21] MEDS ORDERED: DEXAMETHASONE SOD PHOSPHATE 4 MG/1 ML VIAL ONE (13:18)
[2020-04-21] MEDS ORDERED: LIDOCAINE HCL/PF 2% SDV 5ML VIAL ONE (13:18)
[2020-04-21] MEDS ORDERED: PROPOFOL 20 ML ONE ×2 (13:21)
[2020-04-21] MEDS ORDERED: MIDAZOLAM HCL 2 MG/2 ML SINGLE DOSE VIAL ONE (13:22)
[2020-04-21] MEDS ORDERED: KETOROLAC TROMETHAMINE 30 MG/1 ML VIAL ONE (13:33)
[2020-04-21] MEDS ORDERED: CLINDAMYCIN PHOSPHATE 600 MG/4 ML VIAL ONE (13:56)
--- NOTE | 2020-04-21 14:24 | OP ---
Operative Note - Note: Operative Date: 04/21/20 Pre-Operative Diagnosis: 29yo WIth Incomplete Ab Operation: Suction D&C Findings: Passed large piece of placenta in OR Post-Operative Diagnosis: Same as Pre-op Surgeon: Lovely Fernandez Anesthesiologist/MARKETING ADMINISTRATIVE ASSISTANT: Della Boucher Anesthesia: MAC Specimens Removed: Products of conception Estimated Blood Loss (mls): 20 Drains, Volume Out (mls): 200 Fluid Volume Replaced (mls): 750 Operative Report Dictated: Yes
[2020-04-21] MEDS ORDERED: IBUPROFEN 800 MG/8 ML IJ IVPB PRN (14:25)
[2020-04-21] MEDS ORDERED: ONDANSETRON 4 MG/2 ML VIAL IVPUSH PRN ×2 (14:25→15:23)
[2020-04-21] MEDS ORDERED: IBUPROFEN 600 MG TABLET (FP) PO PRN (14:25)
[2020-04-21] MEDS ORDERED: ELECTROLYTE-148 SOLN 1,000 ML IV SCH (14:30)
[2020-04-21] MEDS ORDERED: oxyCODONE HCL 5 MG TABLET PO PRN ×2 (15:23)
[2020-04-21] MEDS ORDERED: LACTATED RINGERS SOLUTION 1,000 ML IV SCH (15:30)
[2020-04-21 15:35] LABS: BASO % 0.1 % (0-2.0); EOS % 0.1 % (0-4.5); HEMATOCRIT 26.7 % (32.4-45.2); HEMOGLOBIN 8.7 GM/dL (10.7-15.3); LYMPH % 19.2 % (8-40); MCH 28.3 pg (25.7-33.7); MCHC 32.5 g/dl (32.0-36.0); MEAN PLT VOLUME 10.2 fl (7.5-11.1); NEUT % 73.6 % (42.8-82.8); PLATELET COUNT 191 K/MM3 (134-434); RBC 3.07 M/mm3 (3.60-5.2); RDW 16.7 % (11.6-15.6); WHITE BLOOD COUNT 10.2 K/mm3 (4.0-10.0)
[2020-04-21 18:52] VITALS: BP 112/54; PULSE 90; TEMP 97.6
--- NOTE | 2020-04-22 10:21 | OP ---
DATE OF OPERATION: DATE OF DICTATION: 04/22/2020 PREOPERATIVE DIAGNOSIS: A 29-year-old with incomplete . OPERATION: Suction dilatation and curettage. FINDINGS: Passed lodged piece of placenta in the operating room. Additional products of conception were aspirated with suction aspiration. SURGEON: Tomasa Baez MD ANESTHESIOLOGIST: Della Boucher MD ANESTHESIA: MAC. SPECIMEN REMOVED: Products of conception. DESCRIPTION OF THE OPERATIVE PROCEDURE: After assuring informed consent, patient was brought to the operating room where she was laid in the dorsal lithotomy position. Perineum and vagina were prepped and draped in a sterile fashion. The bladder was emptied with straight catheter with 200 mL of urine. The Arechiga retractor was placed into the vagina. Anterior cervical lip was articulated with a single-toothed tenaculum. The cervix was found to be dilated, and easily 8-gauge plastic curved curette was introduced. Products of conception were aspirated. The No. 3 surgical curette was used to assure the emptiness of the uterus, and suction curettage was repeated once more. Subsequently, cervical internal os was found to be closed. All instruments were removed from the uterus, cervix, and vagina. Sponge and instrument count was correct x2. Estimated blood loss was 20 mL. Patient received 700 mL of IV fluid. Patient was brought to the recovery room extubated in stable condition. TOMASA BAEZ M.D. [id number]
--- NOTE | 2020-04-23 10:38 | PATH ---
Surgical Pathology Report Patient Name: DIDI GUADARRAMA [facility]. Rec. #: [id number] /Age/Gender: 1990 (Age: 29) / F Account: [id number] Location: AMBULATORY SURG Taken: 04/21/2020 Received: 04/21/2020 Reported: 04/23/2020 Physicians: Moo Soto M.D. Specimen(s) Received UTERINE CONTENTS Clinical History Retained products of conception Final Diagnosis CONTENTS OF UTERUS, SUCTION DILATATION AND CURETTAGE: INFLAMED DECIDUA, HYPERSECRETORY ENDOMETRIUM AND FEW CHORIONIC VILLI. Electronically Signed Odalys Mckeon M.D. Gross Description Received in formalin labeled "contents of uterus," is a 10.5 x 9.0 x 1.8 cm aggregate of red-brown soft tissue fragments admixed with blood clot. No discrete villous tissue or somatic tissue is identified. Hand Wrapper Operator sections are submitted in 3 cassettes. /04/21/2020 saudi/04/21/2020
== END 2020-04-21 18:15 | disposition home or self-care (01) ==
LOC: JER 05:33 → JASUSAT 10:52
PROVIDERS: ATTEND Obstetrics & Gynecology
PROC: 3E033NZ Introduction of Analgesics, Hypnotics, Sedatives into Peripheral Vein, Percutaneous Approach (ICD-10-PCS; 2020-04-21)
PROC: 3E033GC Introduction of Other Therapeutic Substance into Peripheral Vein, Percutaneous Approach (ICD-10-PCS; 2020-04-21)
PROC: 10D17ZZ Extraction of Products of Conception, Retained, Via Natural or Artificial Opening (ICD-10-PCS; principal; 2020-04-21 12:00)
DX: O03.4 Incomplete spontaneous abortion without complication (principal)
CPT/HCPCS: 36415; 36430; 36511; 76830-TC; 80053; 84702; 85025; 85610; 85730; 86850; 86900; 86901; 86922; 88305-TC; 93005; 93010; 94760; 99285-25; P9038; P9058

== ENCOUNTER 2020-09-03 16:11 | Emergency (ER) | payer OTHER ==
[2020-09-03 16:49] VITALS: BP 143/88; PULSE 82; TEMP 98.2; BMI 28.0
[2020-09-03] MEDS ORDERED: SODIUM CHLORIDE 1,000 ML IV STA (17:59)
[2020-09-03] MEDS ORDERED: FAMOTIDINE 20 MG/50 ML IVPB 20 MG/50 ML MG IVPB ONE ×2 (18:00→18:34)
[2020-09-03] MEDS ORDERED: MAG HYDROX/AL HYDROX/SIMETH -MYLANTA- ORAL SUSPENSION PO ONE (18:00)
[2020-09-03] MEDS ORDERED: MAG HYDROX/AL HYDROX/SIMETH 30 ML UNIT-DOSE CUP ONE (18:34)
[2020-09-03 18:54] LABS: EPI CELLS >36 /uL (0-25.1); HYALINE CASTS 13 /uL (0-3.1); PH,URINE 5.5 (5.0-8.0); URINE APPEARANCE CLOUDY; URINE BACTERIA 1023 /uL (0-1359); URINE BILIRUBIN 1+ (NEGATIVE); URINE COLOR DK YELLOW; URINE GLUCOSE (UA) NEGATIVE (NEGATIVE); URINE KETONE TRACE (NEGATIVE); URINE LEUK ESTERASE TRACE (NEGATIVE); URINE NITRITE NEGATIVE (NEGATIVE); URINE PROTEIN 1+ (NEGATIVE); URINE WBC 84 /uL (0-25.8)
[2020-09-03 19:09] LABS: BASO % 1.4 % (0-2.0); EOS % 0.6 % (0-4.5); HEMATOCRIT 33.6 % (32.4-45.2); HEMOGLOBIN 10.4 GM/dL (10.7-15.3); LYMPH % 24.8 % (8-40); MCH 22.3 pg (25.7-33.7); MCHC 30.9 g/dl (32.0-36.0); MEAN CELL VOLUME 72.3 fl (80-96); MEAN PLT VOLUME 9.2 fl (7.5-11.1); MONO % 7.4 % (3.8-10.2); NEUT % 65.8 % (42.8-82.8); PLATELET COUNT 250 K/MM3 (134-434); RBC 4.65 M/mm3 (3.60-5.2); RDW 21.7 % (11.6-15.6); WHITE BLOOD COUNT 7.3 K/mm3 (4.0-10.0)
[2020-09-03 19:19] LABS: INR 1.08 (0.83-1.09); PROTHROMBIN TIME (PATIENT) 13.3 SEC (9.7-13.0)
[2020-09-03 19:29] LABS: POTASSIUM 3.7 mmol/L (3.5-5.1)
[2020-09-03 19:35] LABS: ALBUMIN 3.7 g/dl (3.4-5.0)
[2020-09-03 19:36] LABS: BLOOD UREA NITROGEN 6.7 mg/dL (7-18); CALCIUM 9.1 mg/dL (8.5-10.1)
[2020-09-03 19:39] LABS: CREATININE 0.7 mg/dL (0.55-1.3)
[2020-09-03 19:41] LABS: BILIRUBIN,TOTAL 0.7 mg/dL (0.2-1); TOT PROT 7.7 g/dl (6.4-8.2)
[2020-09-03 23:08] LABS: ANISOCYTOSIS 2+; MACROCYTOSIS 0; PLATELET ESTIMATE NORMAL
[2020-09-03 23:44] LABS: URINE RBC 30.4 /uL (0-23.9)
== END 2020-09-03 22:08 | disposition home or self-care (01) ==
LOC: JER 16:11
PROC: 3E033GC Introduction of Other Therapeutic Substance into Peripheral Vein, Percutaneous Approach (ICD-10-PCS; principal; 2020-09-03)
PROC: 3E0337Z Introduction of Electrolytic and Water Balance Substance into Peripheral Vein, Percutaneous Approach (ICD-10-PCS; 2020-09-03)
DX: R10.12 Left upper quadrant pain (principal)
CPT/HCPCS: 36415; 76705-TC; 76801-TC; 80053; 81003; 83690; 84702; 84703; 85025; 85610; 87086; 99284-25

== ENCOUNTER 2020-09-11 09:06 | Emergency (ER) | payer OTHER ==
[2020-09-11 09:35] VITALS: BMI 32.5
[2020-09-11] MEDS ORDERED: DOCUSATE SODIUM 100 MG CAPSULE (FP) PO ONE ×2 (10:08→10:44)
[2020-09-11] MEDS ORDERED: ACETAMINOPHEN 1000 MG/100 ML VIAL (NON FORMULARY) IVPB ONE (10:08)
[2020-09-11] MEDS ORDERED: SODIUM CHLORIDE 1,000 ML IV STA (10:08)
[2020-09-11] MEDS ORDERED: ACETAMINOPHEN INJECTION 100 ML IVPB ONE (10:44)
[2020-09-11 11:00] LABS: BASO % 0.3 % (0-2.0); EOS % 0.7 % (0-4.5); HEMOGLOBIN 9.6 GM/dL (10.7-15.3); LYMPH % 23.1 % (8-40); MCH 23.3 pg (25.7-33.7); MCHC 31.9 g/dl (32.0-36.0); MEAN CELL VOLUME 72.9 fl (80-96); MEAN PLT VOLUME 9.6 fl (7.5-11.1); MONO % 9.4 % (3.8-10.2); NEUT % 66.5 % (42.8-82.8); PLATELET COUNT 245 K/MM3 (134-434); RBC 4.12 M/mm3 (3.60-5.2); RDW 22.3 % (11.6-15.6)
[2020-09-11 11:18] LABS: POTASSIUM 3.5 mmol/L (3.5-5.1)
[2020-09-11 11:20] LABS: CALCIUM 8.8 mg/dL (8.5-10.1)
[2020-09-11 11:21] LABS: ALBUMIN 3.2 g/dl (3.4-5.0); BLOOD UREA NITROGEN 8.8 mg/dL (7-18)
[2020-09-11 11:24] LABS: CREATININE 0.6 mg/dL (0.55-1.3)
[2020-09-11 11:25] LABS: BILIRUBIN,TOTAL 0.2 mg/dL (0.2-1); TOT PROT 7.1 g/dl (6.4-8.2)
[2020-09-11 12:16] LABS: EPI CELLS >36 /uL (0-25.1); HYALINE CASTS 18 /uL (0-3.1); PH,URINE 5.5 (5.0-8.0); URINE APPEARANCE CLOUDY; URINE BACTERIA 190 /uL (0-1359); URINE BILIRUBIN NEGATIVE (NEGATIVE); URINE COLOR DK YELLOW; URINE GLUCOSE (UA) NEGATIVE (NEGATIVE); URINE KETONE TRACE (NEGATIVE); URINE LEUK ESTERASE NEGATIVE (NEGATIVE); URINE NITRITE NEGATIVE (NEGATIVE); URINE PROTEIN 1+ (NEGATIVE); URINE WBC 42 /uL (0-25.8)
[2020-09-11 13:23] VITALS: BP 136/88; PULSE 89; TEMP 98.2
[2020-09-11 14:05] LABS: ANISOCYTOSIS 1+; MACROCYTOSIS 0; OVALOCYTE 1+; PLATELET ESTIMATE NORMAL
== END 2020-09-11 13:23 | disposition home or self-care (01) ==
LOC: JER 09:06
PROC: 3E0333Z Introduction of Anti-inflammatory into Peripheral Vein, Percutaneous Approach (ICD-10-PCS; principal; 2020-09-11)
PROC: 3E0337Z Introduction of Electrolytic and Water Balance Substance into Peripheral Vein, Percutaneous Approach (ICD-10-PCS; 2020-09-11)
DX: R10.32 Left lower quadrant pain (principal)
CPT/HCPCS: 36415; 71045-TC-FY; 80053; 81003; 83690; 85025; 87077; 87086; 87186; 93005; 93010; 99285-25; J0131

== ENCOUNTER 2022-04-13 11:34 | Emergency (ER) | payer OTHER ==
[2022-04-13 11:41] VITALS: TEMP 98.6; BMI 32.5
[2022-04-13] MEDS ORDERED: ACETAMINOPHEN 1000 MG/100 ML BAG IVPB ONE (12:08)
[2022-04-13] MEDS ORDERED: ACETAMINOPHEN INJECTION 100 ML IVPB ONE (12:16)
[2022-04-13 12:32] LABS: BASO % 0.4 % (0-2.0); EOS % 0.9 % (0-4.5); HEMATOCRIT 37.4 % (32.4-45.2); HEMOGLOBIN 12.5 GM/dL (10.7-15.3); MCH 29.3 pg (25.7-33.7); MCHC 33.6 g/dl (32.0-36.0); MEAN CELL VOLUME 87.2 fl (80-96); MEAN PLT VOLUME 9.6 fl (7.5-11.1); MONO % 8.7 % (3.8-10.2); PLATELET COUNT 207 10^3/uL (134-434); RBC 4.29 M/mm3 (3.60-5.2); RDW 16.7 % (11.6-15.6)
[2022-04-13 12:42] LABS: INR 1.09 (0.83-1.09); PROTHROMBIN TIME (PATIENT) 12.5 SEC (9.7-13.0)
[2022-04-13 13:01] LABS: BLOOD UREA NITROGEN 5.1 mg/dL (7-18); CALCIUM 9.1 mg/dL (8.5-10.1)
[2022-04-13 13:02] LABS: ALBUMIN 3.4 g/dl (3.4-5.0)
[2022-04-13 13:05] LABS: CREATININE 0.6 mg/dL (0.55-1.3)
[2022-04-13 13:06] LABS: BILIRUBIN,TOTAL 0.2 mg/dL (0.2-1); TOT PROT 7.2 g/dl (6.4-8.2)
[2022-04-13 16:16] LABS: EPI CELLS 34 /uL (0-25.1); HYALINE CASTS 2 /uL (0-3.1); PH,URINE 6.5 (5.0-8.0); URINE APPEARANCE CLEAR; URINE BILIRUBIN NEGATIVE (NEGATIVE); URINE COLOR ORANGE; URINE GLUCOSE (UA) NEGATIVE (NEGATIVE); URINE KETONE NEGATIVE (NEGATIVE); URINE LEUK ESTERASE TRACE (NEGATIVE); URINE NITRITE NEGATIVE (NEGATIVE); URINE PROTEIN TRACE (NEGATIVE); URINE RBC 264 /uL (0-23.9); URINE WBC 20 /uL (0-25.8)
[2022-04-13 16:21] VITALS: BP 158/103; PULSE 85; RESP 16
[2022-04-13 16:37] LABS: URINE BACTERIA 239 /uL (0-1359)
== END 2022-04-13 16:22 | disposition home or self-care (01) ==
LOC: JER 11:34
PROC: 3E0333Z Introduction of Anti-inflammatory into Peripheral Vein, Percutaneous Approach (ICD-10-PCS; principal; 2022-04-13)
DX: O02.0 Blighted ovum and nonhydatidiform mole (principal)
CPT/HCPCS: 36415; 76801-TC; 80053; 81003; 84702; 85025; 85610; 85730; 86850; 86900; 86901; 87086; 96374; 99284-25

== ENCOUNTER 2022-04-14 03:33 | Emergency (ER) | payer OTHER ==
[2022-04-14 03:42] VITALS: TEMP 98.1; BMI 32.5
[2022-04-14] MEDS ORDERED: SODIUM CHLORIDE 1,000 ML IV STA (04:16)
[2022-04-14] MEDS ORDERED: morphine CARPU-JECT 4 MG/1 ML DISP.SYRIN IVPUSH ONE (04:16)
[2022-04-14] MEDS ORDERED: ONDANSETRON 4 MG/2 ML VIAL IVPUSH ONE (04:16)
[2022-04-14] MEDS ORDERED: ONDANSETRON 4 MG/2 ML VIAL ONE (05:07)
[2022-04-14] MEDS ORDERED: morphine SULFATE 4 MG/ML VIAL ONE (05:07)
[2022-04-14 05:15] LABS: BASO % 0.6 % (0-2.0); EOS % 1.1 % (0-4.5); HEMATOCRIT 33.2 % (32.4-45.2); HEMOGLOBIN 11.2 GM/dL (10.7-15.3); LYMPH % 28.1 % (8-40); MCH 29.5 pg (25.7-33.7); MCHC 33.8 g/dl (32.0-36.0); MEAN CELL VOLUME 87.3 fl (80-96); MEAN PLT VOLUME 9.7 fl (7.5-11.1); MONO % 8.2 % (3.8-10.2); PLATELET COUNT 257 10^3/uL (134-434); RDW 16.5 % (11.6-15.6)
[2022-04-14 09:10] VITALS: BP 101/60; PULSE 91; RESP 16
== END 2022-04-14 12:19 | disposition home or self-care (01) ==
LOC: JER 03:33
PROC: 3E033GC Introduction of Other Therapeutic Substance into Peripheral Vein, Percutaneous Approach (ICD-10-PCS; principal; 2022-04-14)
DX: O02.1 Missed abortion (principal); Z3A.08 8 weeks gestation of pregnancy
CPT/HCPCS: 36415; 76817-TC; 85025; 99284-25

== ENCOUNTER 2022-06-18 16:38 | Inpatient (IN) | payer OTHER ==
[2022-06-18] MEDS ORDERED: SODIUM CHLORIDE 0.9% 500 ML INFUS.BAG IV ONE ×2 (18:14→22:46)
[2022-06-18] MEDS ORDERED: FAMOTIDINE 20 MG/50 ML IVPB 20 MG/50 ML MG IVPB ONE ×2 (18:14→18:54)
[2022-06-18] MEDS ORDERED: MAG HYDROX/AL HYDROX/SIMETH 30 ML UNIT-DOSE CUP PO ONE (18:14)
[2022-06-18 18:38] LABS: BASO % 0.6 % (0-2.0); EOS % 1.5 % (0-4.5); HEMATOCRIT 32.1 % (32.4-45.2); HEMOGLOBIN 9.8 GM/dL (10.7-15.3); LYMPH % 24.8 % (8-40); MCH 23.3 pg (25.7-33.7); MCHC 30.4 g/dl (32.0-36.0); MEAN CELL VOLUME 76.6 fl (80-96); MEAN PLT VOLUME 8.5 fl (7.5-11.1); MONO % 10.9 % (3.8-10.2); NEUT % 62.2 % (42.8-82.8); PLATELET COUNT 308 10^3/uL (134-434); RBC 4.19 M/mm3 (3.60-5.2); RDW 21.5 % (11.6-15.6); WHITE BLOOD COUNT 5.7 K/mm3 (4.0-10.0)
[2022-06-18] MEDS ORDERED: MAG HYDROX/AL HYDROX/SIMETH 30 ML UNIT-DOSE CUP ONE (18:54)
[2022-06-18 18:59] LABS: ALBUMIN 3.7 g/dl (3.4-5.0); BLOOD UREA NITROGEN 10.3 mg/dL (7-18); CALCIUM 9.2 mg/dL (8.5-10.1); MAGNESIUM 2.4 mg/dL (1.8-2.4)
[2022-06-18 19:00] LABS: ANISOCYTOSIS 2+; MACROCYTOSIS 0
[2022-06-18 19:01] LABS: CREATININE 0.8 mg/dL (0.55-1.3)
[2022-06-18 19:03] LABS: BILIRUBIN,TOTAL 2.1 mg/dL (0.2-1)
[2022-06-18 19:04] LABS: TOT PROT 7.5 g/dl (6.4-8.2)
[2022-06-18 21:17] LABS: EPI CELLS 17 /uL (0-25.1); HYALINE CASTS 3 /uL (0-3.1); URINE APPEARANCE CLEAR; URINE BILIRUBIN 3+ (NEGATIVE); URINE COLOR DK YELLOW; URINE GLUCOSE (UA) NEGATIVE (NEGATIVE); URINE KETONE TRACE (NEGATIVE); URINE LEUK ESTERASE 1+ (NEGATIVE); URINE NITRITE POSITIVE (NEGATIVE); URINE PROTEIN 1+ (NEGATIVE); URINE WBC 24 /uL (0-25.8)
[2022-06-18 21:20] LABS: URINE BACTERIA 142.2 /uL (0-1359); URINE RBC 46.4 /uL (0-23.9)
[2022-06-18] MEDS ORDERED: CEFTRIAXONE 2 GM-D5W BAG 2 GM/50 ML BAG IVPB ONE (22:44)
[2022-06-18] MEDS ORDERED: CEFTRIAXONE 2 GM/100 ML BAG IVPB ONE (22:47)
[2022-06-19] MEDS ORDERED: IBUPROFEN 800 MG/8 ML IJ IVPB PRN (00:14)
[2022-06-19] MEDS ORDERED: IBUPROFEN 800 MG/8 ML IJ IVPB ONE (01:01)
[2022-06-19 03:12] LABS: BILIRUBIN,DIRECT 1.6 mg/dL (0.0-0.2)
[2022-06-19 03:58] LABS: INR 1.09 (0.83-1.09); PROTHROMBIN TIME (PATIENT) 12.6 SEC (9.7-13.0)
[2022-06-19 04:33] VITALS: BMI 34.1
[2022-06-19 08:53] LABS: HEMATOCRIT 29.3 % (32.4-45.2); MCH 23.4 pg (25.7-33.7); MCHC 30.6 g/dl (32.0-36.0); MEAN CELL VOLUME 76.4 fl (80-96); MEAN PLT VOLUME 8.9 fl (7.5-11.1); PLATELET COUNT 271 10^3/uL (134-434); RBC 3.84 M/mm3 (3.60-5.2); RDW 21.6 % (11.6-15.6)
[2022-06-19 09:12] LABS: ALBUMIN 3.3 g/dl (3.4-5.0); CALCIUM 8.5 mg/dL (8.5-10.1)
[2022-06-19 09:13] LABS: BLOOD UREA NITROGEN 7.4 mg/dL (7-18); MAGNESIUM 2.1 mg/dL (1.8-2.4)
[2022-06-19 09:15] LABS: BILIRUBIN,DIRECT 2.3 mg/dL (0.0-0.2)
[2022-06-19 09:17] LABS: BILIRUBIN,TOTAL 2.8 mg/dL (0.2-1); CREATININE 0.7 mg/dL (0.55-1.3); PHOSPHOROUS 2.6 mg/dL (2.5-4.9); TOT PROT 6.8 g/dl (6.4-8.2)
[2022-06-19] MEDS: PANTOPRAZOLE SODIUM 40 MG VIAL IVPUSH SCH (09:29)
[2022-06-19] MEDS: AMPICILLIN NA/SULBACTAM NA 1.5 GM in SODIUM CHLORIDE 100 ML IVPB SCH ×2 (09:29→18:36)
[2022-06-19] MEDS: SODIUM CHLORIDE 1,000 ML IV SCH ×2 (09:30→23:30)
[2022-06-19 22:23] VITALS: RESP 18
[2022-06-20] MEDS: AMPICILLIN NA/SULBACTAM NA 1.5 GM in SODIUM CHLORIDE 100 ML IVPB SCH ×3 (02:35→18:03)
[2022-06-20 10:34] LABS: HEMATOCRIT 29.3 % (32.4-45.2); HEMOGLOBIN 9.1 GM/dL (10.7-15.3); MCH 23.5 pg (25.7-33.7); MCHC 31.2 g/dl (32.0-36.0); MEAN CELL VOLUME 75.3 fl (80-96); MEAN PLT VOLUME 8.5 fl (7.5-11.1); PLATELET COUNT 263 10^3/uL (134-434); RDW 21.7 % (11.6-15.6); WHITE BLOOD COUNT 5.5 K/mm3 (4.0-10.0)
[2022-06-20 10:42] LABS: INR 1.08 (0.83-1.09); PROTHROMBIN TIME (PATIENT) 12.4 SEC (9.7-13.0)
[2022-06-20 10:58] LABS: ALBUMIN 3.5 g/dl (3.4-5.0); CALCIUM 8.3 mg/dL (8.5-10.1)
[2022-06-20 11:00] LABS: BLOOD UREA NITROGEN 5.7 mg/dL (7-18)
[2022-06-20 11:03] LABS: CREATININE 0.6 mg/dL (0.55-1.3)
[2022-06-20] MEDS: PANTOPRAZOLE SODIUM 40 MG VIAL IVPUSH SCH (11:22)
[2022-06-20] MEDS: SODIUM CHLORIDE 1,000 ML IV SCH (11:22)
[2022-06-20 21:05] VITALS: BP 158/83; PULSE 79; TEMP 98.2
[2022-06-20] MEDS ORDERED: PHENYLEPHRINE 0.25% NASAL SPRAY 15 ML BOTTLE NS PRN (21:10)
[2022-06-20] MEDS ORDERED: SODIUM CHLORIDE NASAL SPRAY 44 ML BOTTLE NS ONE (21:12)
[2022-06-21 21:06] LABS: GLIADIN ANTIBODY IGA 5 units (0-19); GLIADIN ANTIBODY IGG 1 units (0-19); TRANSGLUTAMINASE IGG < 2 U/mL (0-5)
== END 2022-06-20 22:30 | disposition short-term general hospital (02) ==
LOC: JER 16:38 → JERBED 22:46 → J5S 06-19 03:52
PROVIDERS: ADMIT Internal Medicine; ATTEND Internal Medicine
DX: K80.71 Calculus of gallbladder and bile duct without cholecystitis with obstruction (principal); U07.1 COVID-19; K76.0 Fatty (change of) liver, not elsewhere classified; D50.9 Iron deficiency anemia, unspecified; F17.210 Nicotine dependence, cigarettes, uncomplicated; E80.6 Other disorders of bilirubin metabolism; R74.01 Elevation of levels of liver transaminase levels; E66.9 Obesity, unspecified; Z68.34 Body mass index [BMI] 34.0-34.9, adult
CPT/HCPCS: 36415; 74181-TC; 76705-TC; 80048; 80053; 80076; 81003; 82248; 82728; 82784; 82977; 83516; 83540; 83550; 83615; 83690; 83735; 84100; 85025; 85027; 85045; 85610; 86038; 86704; 86803; 87086; 87340; 87517; 87529; 93005; 93010; 99285-25; C9803-CS; U0003; U0005